=== PATIENT | male | born 1995 | race Hispanic/Latino ===

== ENCOUNTER 2021-06-03 15:24 | Emergency (ER) | payer OTHER, SELFPAY ==
[2021-06-03] MEDS ORDERED: Ketorolac Tromethamine 30 MG/ML VIAL ONE (18:22)
[2021-06-03] MEDS ORDERED: Ondansetron PF 4 MG/2 ML Vial ONE (18:22)
[2021-06-03 18:26] LABS: #Lymphocytes 1.2 thou/uL (1.20-3.40); #Monocytes 0.3 thou/uL (0.11-0.59); #Neutrophils 3.6 thou/uL (1.40-6.50); %Basophils 0.2 % (0.0-1.0); %Eosinophils 0.1 % (0.0-10.0); %Lymphocytes 23.8 % (21.0-51.0); %Monocytes 5.1 % (0.0-10.0); %Neutrophils 70.8 % (42.0-75.0); Hemoglobin 17.9 g/dL (14.0-18.0); Mean Corpuscular HGB CONC 33.5 g/dL (32.0-36.0); Mean Corpuscular Hemoglobin 30.3 pg (27.0-31.0); Mean Corpuscular Volume 90.4 fL (78.0-98.0); RBC Distribution Width 12.2 % (11.5-14.5); Red Blood Cell (RBC) Count 5.93 mill/uL (4.70-6.10); White Blood Cell (WBC) Count 5.1 thou/uL (4.8-10.8)
[2021-06-03 18:46] LABS: ALT (SGPT) 68 U/L (8-55); AST (SGOT) 63 U/L (5-34); Albumin 4.2 g/dL (3.5-5.0); Alkaline Phosphatase 48 U/L (40-110); Anion Gap 18 mmol/L (10-20); BUN (Urea Nitrogen) 14 mg/dL (8.9-20.6); Bilirubin, Total 0.5 mg/dL (0.2-1.2); CK (CPK) 112 U/L (30-200); Calc. Creatinine Clearance 0 mL/min (70-130); Calcium 8.6 mg/dL (7.8-10.44); Carbon Dioxide 20 mmol/L (22-29); Chloride 101 mmol/L (98-107); Globulin 3.4 g/dL (2.4-3.5); Glucose 91 mg/dL (70-105); Potassium 4.3 mmol/L (3.5-5.1); Protein, Total 7.6 g/dL (6.0-8.3); Sodium 135 mmol/L (136-145)
[2021-06-03 18:54] LABS: Mean Platelet Volume 8.3 fL (7.4-10.4); Platelet Count 105 thou/uL (130-400); Platelet Morphology Comment Appears Decreased; RBC Morphology Normal
[2021-06-04 19:41] LABS: SARS-CoV-2 PCR by NAA DETECTED (NotDetected)
== END 2021-06-03 20:19 | disposition home or self-care (01) ==
LOC: ERS 15:24
DX: U07.1 COVID-19 (principal)
CPT/HCPCS: 36415; 80053; 82550; 85025; 96374; 96375; J1885; J2405; U0003; U0005

== ENCOUNTER 2021-06-07 | Emergency (ER) | payer SELFPAY | END 2021-06-07 14:37 | disposition home or self-care (01) ==

== ENCOUNTER 2021-06-08 09:07 | Inpatient (IN) | payer SELFPAY ==
[2021-06-08] MEDS ORDERED: Dexamethasone 10 MG/ML VIAL ONE (09:31)
[2021-06-08] MEDS ORDERED: Iopamidol-370 76% 500 ML 1 ML ONE (09:53)
[2021-06-08 09:55] LABS: #Basophils 0.1 thou/uL (0.0-0.2); #Lymphocytes 0.4 thou/uL (1.20-3.40); #Monocytes 0.4 thou/uL (0.11-0.59); #Neutrophils 9.4 thou/uL (1.40-6.50); %Eosinophils 0.1 % (0.0-10.0); %Lymphocytes 4.1 % (21.0-51.0); %Monocytes 4.2 % (0.0-10.0); %Neutrophils 90.7 % (42.0-75.0); Mean Corpuscular HGB CONC 34.1 g/dL (32.0-36.0); Mean Corpuscular Hemoglobin 30.8 pg (27.0-31.0); Mean Corpuscular Volume 90.4 fL (78.0-98.0); Mean Platelet Volume 7.6 fL (7.4-10.4); Platelet Count 226 thou/uL (130-400); RBC Distribution Width 12.5 % (11.5-14.5); Red Blood Cell (RBC) Count 5.21 mill/uL (4.70-6.10); White Blood Cell (WBC) Count 10.4 thou/uL (4.8-10.8)
[2021-06-08] MEDS ORDERED: Ketorolac Tromethamine 30 MG/ML VIAL ONE (09:56)
[2021-06-08 10:16] LABS: ALT (SGPT) 72 U/L (8-55); AST (SGOT) 76 U/L (5-34); Albumin 3.2 g/dL (3.5-5.0); Alkaline Phosphatase 35 U/L (40-110); Anion Gap 13 mmol/L (10-20); BUN (Urea Nitrogen) 12 mg/dL (8.9-20.6); Bilirubin, Total 0.6 mg/dL (0.2-1.2); Calc. Creatinine Clearance 0 mL/min (70-130); Calcium 8.4 mg/dL (7.8-10.44); Carbon Dioxide 24 mmol/L (22-29); Chloride 102 mmol/L (98-107); Globulin 3.2 g/dL (2.4-3.5); Glucose 187 mg/dL (70-105); Protein, Total 6.4 g/dL (6.0-8.3); Sodium 135 mmol/L (136-145)
[2021-06-08 13:21] LABS: Troponin I Less than 0.010 ng/mL (< 0.028)
[2021-06-08] MEDS ORDERED: Acetaminophen 325 MG TAB ONE (13:43)
[2021-06-08 15:57] LABS: Troponin I Less than 0.010 ng/mL (< 0.028)
[2021-06-08] MEDS ORDERED: Bisacodyl 5 MG TAB PO PRN (17:19)
[2021-06-08] MEDS ORDERED: Ondansetron PF 4 MG/2 ML Vial IVP PRN (17:19)
[2021-06-08] MEDS: Enoxaparin Sodium 40 MG/0.4 ML SYRINGE SC SCH (20:23)
[2021-06-08] MEDS: Acetaminophen 325 MG TAB PO PRN (22:08)
[2021-06-09] MEDS: Acetaminophen 325 MG TAB PO PRN ×2 (02:39→11:52)
[2021-06-09 04:49] LABS: #Lymphocytes 0.6 thou/uL (1.20-3.40); #Monocytes 0.6 thou/uL (0.11-0.59); #Neutrophils 9.5 thou/uL (1.40-6.50); %Eosinophils 0.1 % (0.0-10.0); %Lymphocytes 5.4 % (21.0-51.0); %Monocytes 5.8 % (0.0-10.0); %Neutrophils 88.7 % (42.0-75.0); Hemoglobin 15.4 g/dL (14.0-18.0); Mean Corpuscular Hemoglobin 29.9 pg (27.0-31.0); Mean Corpuscular Volume 90.7 fL (78.0-98.0); Mean Platelet Volume 7.4 fL (7.4-10.4); Platelet Count 266 thou/uL (130-400); RBC Distribution Width 12.5 % (11.5-14.5); Red Blood Cell (RBC) Count 5.13 mill/uL (4.70-6.10); White Blood Cell (WBC) Count 10.7 thou/uL (4.8-10.8)
[2021-06-09 05:05] LABS: Anion Gap 11 mmol/L (10-20); BUN (Urea Nitrogen) 14 mg/dL (8.9-20.6); Calc. Creatinine Clearance 205 mL/min (70-130); Calcium 8.2 mg/dL (7.8-10.44); Carbon Dioxide 25 mmol/L (22-29); Chloride 102 mmol/L (98-107); Glucose 136 mg/dL (70-105); Potassium 4.4 mmol/L (3.5-5.1); Sodium 134 mmol/L (136-145)
[2021-06-09] MEDS: Ascorbic Acid 500 mg Chewable Tablet PO SCH (09:22)
[2021-06-09] MEDS: Dexamethasone 10 MG/ML VIAL SLOW IVP SCH (09:22)
[2021-06-09] MEDS: Enoxaparin Sodium 40 MG/0.4 ML SYRINGE SC SCH ×2 (09:22→19:41)
[2021-06-09] MEDS: Zinc Sulfate 220 MG CAP PO SCH (09:23)
[2021-06-10] MEDS: Zinc Sulfate 220 MG CAP PO SCH (08:32)
[2021-06-10] MEDS: Enoxaparin Sodium 40 MG/0.4 ML SYRINGE SC SCH ×2 (08:32→20:53)
[2021-06-10] MEDS: Ascorbic Acid 500 mg Chewable Tablet PO SCH (08:32)
[2021-06-10] MEDS: Dexamethasone 10 MG/ML VIAL SLOW IVP SCH (08:35)
[2021-06-11] MEDS: Ascorbic Acid 500 mg Chewable Tablet PO SCH (09:08)
[2021-06-11] MEDS: Zinc Sulfate 220 MG CAP PO SCH (09:08)
[2021-06-11] MEDS: Enoxaparin Sodium 40 MG/0.4 ML SYRINGE SC SCH ×2 (09:08→21:49)
[2021-06-11] MEDS: Dexamethasone 4 mg/ml Vial SLOW IVP SCH (09:14)
[2021-06-12] MEDS: Ascorbic Acid 500 mg Chewable Tablet PO SCH (08:30)
[2021-06-12] MEDS: Dexamethasone 4 mg/ml Vial SLOW IVP SCH (08:30)
[2021-06-12] MEDS: Enoxaparin Sodium 40 MG/0.4 ML SYRINGE SC SCH ×2 (08:30→19:42)
[2021-06-12] MEDS: Zinc Sulfate 220 MG CAP PO SCH (08:31)
[2021-06-12] MEDS: Cepastat Lozenges 1 LOZ PO PRN (20:09)
[2021-06-13] MEDS: Dexamethasone 4 mg/ml Vial SLOW IVP SCH (08:43)
[2021-06-13] MEDS: Zinc Sulfate 220 MG CAP PO SCH (08:43)
[2021-06-13] MEDS: Ascorbic Acid 500 mg Chewable Tablet PO SCH (08:43)
[2021-06-13] MEDS: Enoxaparin Sodium 40 MG/0.4 ML SYRINGE SC SCH ×2 (08:43→20:09)
[2021-06-14] MEDS: Dexamethasone 4 mg/ml Vial SLOW IVP SCH (08:33)
[2021-06-14] MEDS: Ascorbic Acid 500 mg Chewable Tablet PO SCH (08:34)
[2021-06-14] MEDS: Enoxaparin Sodium 40 MG/0.4 ML SYRINGE SC SCH ×2 (08:34→20:20)
[2021-06-14] MEDS: Zinc Sulfate 220 MG CAP PO SCH (08:34)
[2021-06-14] MEDS: Cepastat Lozenges 1 LOZ PO PRN ×2 (10:28→21:07)
[2021-06-14] MEDS: Acetaminophen 325 MG TAB PO PRN (20:28)
[2021-06-15] MEDS: Enoxaparin Sodium 40 MG/0.4 ML SYRINGE SC SCH ×2 (08:40→21:11)
[2021-06-15] MEDS: Zinc Sulfate 220 MG CAP PO SCH (08:40)
[2021-06-15] MEDS: Dexamethasone 4 mg/ml Vial SLOW IVP SCH (08:40)
[2021-06-15] MEDS: Ascorbic Acid 500 mg Chewable Tablet PO SCH (08:40)
[2021-06-16 08:09] VITALS: BMI 31.9
[2021-06-16] MEDS: Dexamethasone 4 mg/ml Vial SLOW IVP SCH (08:59)
[2021-06-16] MEDS: Enoxaparin Sodium 40 MG/0.4 ML SYRINGE SC SCH ×2 (08:59→20:51)
[2021-06-16] MEDS: Cepastat Lozenges 1 LOZ PO PRN ×3 (08:59→20:59)
[2021-06-16] MEDS: Zinc Sulfate 220 MG CAP PO SCH (09:00)
[2021-06-16] MEDS: Ascorbic Acid 500 mg Chewable Tablet PO SCH (10:31)
[2021-06-17] MEDS: Cepastat Lozenges 1 LOZ PO PRN (08:49)
[2021-06-17] MEDS: Zinc Sulfate 220 MG CAP PO SCH (08:50)
[2021-06-17] MEDS: Ascorbic Acid 500 mg Chewable Tablet PO SCH (08:52)
[2021-06-17] MEDS: Dexamethasone 4 mg/ml Vial SLOW IVP SCH (08:53)
[2021-06-17] MEDS: Enoxaparin Sodium 40 MG/0.4 ML SYRINGE SC SCH ×2 (08:54→20:32)
[2021-06-17 11:36] LABS: #Basophils 0.1 thou/uL (0.0-0.2); #Eosinphils 0.1 thou/uL (0.0-0.7); #Lymphocytes 0.8 thou/uL (1.20-3.40); #Monocytes 0.8 thou/uL (0.11-0.59); #Neutrophils 14.1 thou/uL (1.40-6.50); %Basophils 0.4 % (0.0-1.0); %Eosinophils 0.6 % (0.0-10.0); %Lymphocytes 5.2 % (21.0-51.0); %Monocytes 4.7 % (0.0-10.0); Mean Corpuscular Hemoglobin 30.6 pg (27.0-31.0); Mean Corpuscular Volume 90.1 fL (78.0-98.0); Mean Platelet Volume 7.4 fL (7.4-10.4); Platelet Count 551 thou/uL (130-400); RBC Distribution Width 12.2 % (11.5-14.5); Red Blood Cell (RBC) Count 5.54 mill/uL (4.70-6.10); White Blood Cell (WBC) Count 15.9 thou/uL (4.8-10.8)
[2021-06-17 11:52] LABS: Anion Gap 15 mmol/L (10-20); BUN (Urea Nitrogen) 21 mg/dL (8.9-20.6); Calc. Creatinine Clearance 199 mL/min (70-130); Calcium 8.5 mg/dL (7.8-10.44); Carbon Dioxide 22 mmol/L (22-29); Chloride 104 mmol/L (98-107); Glucose 130 mg/dL (70-105); Sodium 137 mmol/L (136-145)
[2021-06-18] MEDS: Zinc Sulfate 220 MG CAP PO SCH (08:24)
[2021-06-18] MEDS: Dexamethasone 4 mg/ml Vial SLOW IVP SCH (08:25)
[2021-06-18] MEDS: Enoxaparin Sodium 40 MG/0.4 ML SYRINGE SC SCH ×2 (08:25→20:30)
[2021-06-18] MEDS: Ascorbic Acid 500 mg Chewable Tablet PO SCH (08:25)
[2021-06-18] MEDS: Cepastat Lozenges 1 LOZ PO PRN (20:36)
[2021-06-19] MEDS: Dexamethasone 4 mg/ml Vial SLOW IVP SCH (08:45)
[2021-06-19] MEDS: Ascorbic Acid 500 mg Chewable Tablet PO SCH (08:45)
[2021-06-19] MEDS: Zinc Sulfate 220 MG CAP PO SCH (08:45)
[2021-06-19] MEDS: Enoxaparin Sodium 40 MG/0.4 ML SYRINGE SC SCH ×2 (11:40→21:08)
[2021-06-20 05:22] LABS: #Basophils 0.1 thou/uL (0.0-0.2); #Eosinphils 0.1 thou/uL (0.0-0.7); #Lymphocytes 3.3 thou/uL (1.20-3.40); #Monocytes 0.8 thou/uL (0.11-0.59); %Basophils 0.7 % (0.0-1.0); %Eosinophils 0.6 % (0.0-10.0); %Monocytes 6.2 % (0.0-10.0); %Neutrophils 65.5 % (42.0-75.0); Hemoglobin 16.9 g/dL (14.0-18.0); Mean Corpuscular Hemoglobin 29.8 pg (27.0-31.0); Mean Corpuscular Volume 90.3 fL (78.0-98.0); Mean Platelet Volume 7.3 fL (7.4-10.4); Platelet Count 400 thou/uL (130-400); RBC Distribution Width 12.3 % (11.5-14.5); Red Blood Cell (RBC) Count 5.68 mill/uL (4.70-6.10); White Blood Cell (WBC) Count 12.3 thou/uL (4.8-10.8)
[2021-06-20 05:38] LABS: Anion Gap 13 mmol/L (10-20); BUN (Urea Nitrogen) 16 mg/dL (8.9-20.6); Calc. Creatinine Clearance 205 mL/min (70-130); Carbon Dioxide 23 mmol/L (22-29); Chloride 104 mmol/L (98-107); Glucose 87 mg/dL (70-105); Potassium 4.2 mmol/L (3.5-5.1); Sodium 136 mmol/L (136-145)
[2021-06-20] MEDS: Zinc Sulfate 220 MG CAP PO SCH (08:39)
[2021-06-20] MEDS: Dexamethasone 4 mg/ml Vial SLOW IVP SCH (08:39)
[2021-06-20] MEDS: Ascorbic Acid 500 mg Chewable Tablet PO SCH (08:39)
[2021-06-20] MEDS: Enoxaparin Sodium 40 MG/0.4 ML SYRINGE SC SCH (11:58)
[2021-06-20 16:40] VITALS: BP 111/72; TEMP 98.3
== END 2021-06-20 17:51 | disposition home or self-care (01) | DRG 871 ==
LOC: ERS 09:07 → ERHOLD 12:28 → OBSVTOIN 13:16 → 2SE 19:22
PROVIDERS: ADMIT Internal Medicine; ATTEND Hospitalist
PROC: 8E0ZXY6 Isolation (ICD-10-PCS; principal; 2021-06-08)
DX: A41.89 Other specified sepsis (principal); U07.1 COVID-19; J96.01 Acute respiratory failure with hypoxia; J12.82 Pneumonia due to coronavirus disease 2019; E66.9 Obesity, unspecified; Z79.51 Long term (current) use of inhaled steroids; Z79.899 Other long term (current) drug therapy; Z68.32 Body mass index [BMI] 32.0-32.9, adult
CPT/HCPCS: 36415; 36416; 71045; 71275; 80048; 80053; 82728; 84443; 84484; 85025; 85379; 86140; 93005; 96374; 96375; G0378; J1100; J1650; J1885; Q9967